=== PATIENT | female | born 1965 | race Caucasian/White ===

== ENCOUNTER 2022-07-31 13:15 | Emergency (ER) | payer OTHER ==
[2022-07-31 13:43] VITALS: TEMP 98; BMI 24.7
[2022-07-31] MEDS ORDERED: diphenhydrAMINE HCL 50 MG CAPSULE ONE (14:46)
[2022-07-31] MEDS ORDERED: ACETAMINOPHEN 325 MG TABLET (FP) PO ONE (14:53)
[2022-07-31] MEDS ORDERED: ACETAMINOPHEN 325 MG TABLET (FP) ONE (15:04)
[2022-07-31 15:07] LABS: ALBUMIN 4.1 g/dl (3.4-5.0); BILIRUBIN,TOTAL 0.5 mg/dl (0.2-1); CALCIUM 9.2 mg/dl (8.5-10); CREATININE 0.8 mg/dl (0.55-1.3); TOT PROT 7.1 g/dl (6.4-8.2)
[2022-07-31 15:10] LABS: BASO % 1.2 % (0-2.0); EOS % 2.6 % (0-4.5); HEMATOCRIT 39.4 % (32.4-45.2); HEMOGLOBIN 13.5 GM/dL (10.7-15.3); LYMPH % 42.4 % (8-40); MCH 30.6 pg (25.7-33.7); MCHC 34.2 g/dl (32.0-36.0); MEAN CELL VOLUME 89.6 fl (80-96); MEAN PLT VOLUME 8.9 fl (7.5-11.1); MONO % 8.1 % (3.8-10.2); NEUT % 45.7 % (42.8-82.8); PLATELET COUNT 196 10^3/uL (134-434); RDW 13.9 % (11.6-15.6); WHITE BLOOD COUNT 5.9 K/mm3 (4.0-10.0)
[2022-07-31 15:21] LABS: INR 0.95 (0.83-1.09); PROTHROMBIN TIME (PATIENT) 10.9 SEC (9.7-13.0)
[2022-07-31 16:22] VITALS: BP 121/74; PULSE 78; RESP 16
== END 2022-07-31 16:30 | disposition home or self-care (01) ==
LOC: FER 13:15
DX: S09.90XA Unspecified injury of head, initial encounter (principal); W10.8XXA Fall (on) (from) other stairs and steps, initial encounter
CPT/HCPCS: 36415; 70450-TC; 70486-TC; 72125-TC; 80053; 85025; 85610; 99285-25